=== PATIENT | male | born 2000 | race Hispanic/Latino ===

== ENCOUNTER → 2021-08-04 | Outpatient (CLI) | payer OTHER | LOC: M CARPUL 10:03 | PROVIDERS: ATTEND Physician Assistant | DX: R07.9 Chest pain, unspecified (principal) ==

== ENCOUNTER 2021-11-06 22:34 | Emergency (ER) | payer OTHER ==
[~2021-11-06] VITALS: Ht 162.6 cm; Wt 67.1 kg
[2021-11-06 22:38] VITALS: BP 151/79
[2021-11-06] MEDS ORDERED: PANT20TA6 PO (22:47)
[2021-11-06] MEDS ORDERED: HYDR-643 PO (22:47)
== END 2021-11-07 03:19 | disposition left against medical advice (07) ==
LOC: M ED 22:34
DX: Z53.21 Procedure and treatment not carried out due to patient leaving prior to being seen by health care provider (principal)